=== PATIENT | female | born 1980 | race Caucasian/White ===

== ENCOUNTER 2023-10-14 21:39 | Emergency (ER) | payer BC ==
[2023-10-14] MEDS: Acetaminophen 325 MG Tab PO ONE (22:05)
[2023-10-14] MEDS: Ketorolac 30 MG/ML SDV IM ONE (22:05)
== END 2023-10-14 23:25 | disposition home or self-care (01) ==
LOC: MW.ED 21:39
DX: M25.531 Pain in right wrist (principal); Z79.899 Other long term (current) drug therapy; Z75.8 Other problems related to medical facilities and other health care
CPT/HCPCS: 29125; 73100; 96372; 99283; A9270; J1885

== ENCOUNTER 2024-02-20 08:35 | Emergency (ER) | payer BC ==
[2024-02-20] MEDS ORDERED: Sodium Chloride 0.9% 10 ML Syringe FLUSH PRN (08:56)
[2024-02-20] MEDS: Sodium Chloride 0.9% 1,000 ML IV ONE (09:20)
[2024-02-20] MEDS: Dexamethasone 4 MG/ML SDV IVPUSH ONE (09:21)
[2024-02-20 09:26] LABS: BASOPHILS ABSOLUTE AUTO 0.04 K/uL (0.00-0.20); BASOPHILS PERCENT AUTO 0.4 % (0.0-1.0); EOSINOPHILS ABSOLUTE AUTO 0.17 K/uL (0.00-0.45); EOSINOPHILS PERCENT AUTO 1.8 % (0.0-6.0); HEMATOCRIT 41.3 % (37.0-47.0); HEMOGLOBIN 14.6 g/dL (12.0-16.0); IMMATURE GRAN ABSOLUTE AUTO 0.03 K/uL (0.00-0.05); IMMATURE GRAN PERCENT AUTO 0.3 % (0.0-0.4); LYMPHOCYTES ABSOLUTE AUTO 1.37 K/uL (1.00-4.80); LYMPHOCYTES PERCENT AUTO 14.6 % (24.0-44.0); MEAN CORPUSCULAR HEMOGLOBIN 29.7 pg (28.0-32.0); MEAN CORPUSCULAR HGB CONC 35.4 g/dL (32.0-36.0); MEAN CORPUSCULAR VOLUME 83.9 fL (83.0-99.0); MEAN PLATELET VOLUME 9.5 fL (9.4-12.3); MONOCYTES ABSOLUTE AUTO 0.72 K/uL (0.00-0.80); MONOCYTES PERCENT AUTO 7.7 % (0.0-8.0); NEUTROPHILS ABSOLUTE AUTO 7.04 K/uL (1.80-7.70); NEUTROPHILS PERCENT AUTO 75.2 % (41.0-71.0); PLATELET COUNT,PLT 229 K/uL (150-400); RED BLOOD CELL COUNT 4.92 M/uL (4.10-5.30); WHITE BLOOD CELL COUNT,WBC 9.37 K/uL (3.9-11.3)
[2024-02-20] MEDS: Albuterol/Ipratropium 3.0-0.5 MG/3 ML Neb Soln NEB ONE (09:26)
[2024-02-20 09:28] LABS: CORONAVIRUS COVID-19 NAA NEGATIVE (NEGATIVE); INFLUENZA A NAA NEGATIVE (NEGATIVE); INFLUENZA B NAA NEGATIVE (NEGATIVE); RESPIRATORY SYNCYTIAL VIR NAA NEGATIVE (NEGATIVE)
[2024-02-20] MEDS: Ondansetron 4 MG/2 ML SDV IVPUSH ONE (09:46)
[2024-02-20 10:00] LABS: A/G RATIO 1.1 (0.9-1.6); BILIRUBIN TOTAL 0.8 mg/dL (0.2-1.0); CALCIUM 8.6 mg/dL (8.5-10.1); CARBON DIOXIDE,CO2 27.4 mmol/L (21.0-32.0); CREATININE 0.8 mg/dL (0.6-1.0); EST CRCL DRUG DOSING (CG) 76.68 mL/min; MAGNESIUM 1.9 mg/dL (1.8-2.4); POTASSIUM,K 3.9 mmol/L (3.5-5.1); PROTEIN TOTAL,TP 7.5 g/dL (6.4-8.2)
== END 2024-02-20 10:44 | disposition home or self-care (01) ==
LOC: MW.ED 08:35
DX: J45.21 Mild intermittent asthma with (acute) exacerbation (principal); R11.14 Bilious vomiting; R07.89 Other chest pain; F17.290 Nicotine dependence, other tobacco product, uncomplicated; R74.01 Elevation of levels of liver transaminase levels; F10.99 Alcohol use, unspecified with unspecified alcohol-induced disorder; Z79.899 Other long term (current) drug therapy
CPT/HCPCS: 0241U; 36415; 71045; 80053; 83735; 83880; 84484; 85025; 85379; 93005; 94640; 96361; 96374; 96375; 99285; J1100; J2405; J7030; J7620-GY

== ENCOUNTER 2024-03-01 14:56 | Emergency (ER) | payer BC ==
[2024-03-01] MEDS: Acetaminophen/HYDROcodone 325-5 MG Tab PO ONE (16:47)
== END 2024-03-01 17:36 | disposition home or self-care (01) ==
LOC: MW.ED 14:56
DX: S92.355A Nondisplaced fracture of fifth metatarsal bone, left foot, initial encounter for closed fracture (principal); W10.8XXA Fall (on) (from) other stairs and steps, initial encounter; Z75.8 Other problems related to medical facilities and other health care
CPT/HCPCS: 73610; 73620; 99283; A9270